=== PATIENT | female | born 1990 ===

== ENCOUNTER 2018-01-13 07:51 | Inpatient (IN) | payer MEDICAID ==
[2018-01-13] MEDS ORDERED: Sodium Citrate/Citric Acid 15 ml Sol PO ONE (14:59)
[2018-01-13] MEDS ORDERED: cefOXitin IV 2 gm in Dextrose 2 GM/50 ML BAG IVPB ONE (14:59)
[2018-01-13] MEDS ORDERED: Lactated Ringer's 1,000 ML IV ONE (14:59)
--- NOTE | 2018-01-13 14:59 | OBADHP ---
Datetime: 01/13/2018 14:54 Admit Comment, IP Provider: at 41week herec/o vaginal bleeding started 1 hr and irrg ctxs. ,no lof+fm obhx primi pmh de med pnv al nkda psh de soch d ve /-2 a/p at 41wek with r/o placenta abruption admit to l_d for stat primary c/s npo/ivf labs anthesia aware skin abxs informed consent Pelvic Type - PN: Adequate Extremities - PN: Normal Abdomen - PN: Normal Back - PN: Normal Breast - PN: Normal Lungs - PN: Normal Heart - PN: Normal Thyroid - PN: Normal Neurologic - PN: Normal HEENT - PN: Normal General - PN: Normal FHR - Baseline A Provider: 130 Contraction Comments Provider: q1-2 IP Hx Assessment: The History has been Reviewed and is Current Vital Signs Provider: Reviewed; Within Normal Limits IP Chief Complaint: Uterine contractions; Vaginal bleeding NICHD Variability Prov Fetus A: Minimal - Undetectable to <5bpm Dilatation, Provider: 4 Effacement, Provider: 80 Station, Provider: -2 Genitourinary Exam: Normal DTRs - PN: Normal IP Adm Impression: Term, intrauterine IP Admit Plan: Admit to unit; Initiate Section protocol
[2018-01-13] MEDS ORDERED: Morphine 1 mg/ml preservative-free Inj(Duramorph) ONE (15:06)
[2018-01-13 15:14] LABS: BASO % 0.3 % (0.0-2.0); EOS % 0.4 % (0.0-4.0); HEMOGLOBIN 10.5 g/dL (11.0-16.0); LYMPH # 3.4 K/uL (1.0-4.3); LYMPH % 24.4 % (20.0-40.0); MEAN CELL VOLUME 78.3 fL (81.0-99.0); MEAN CORPUSCULAR HEMOGLOBIN 26.1 pg (27.0-31.0); MEAN CORPUSCULAR HGB CONC 33.3 g/dL (33.0-37.0); MEAN PLATELET VOLUME 8.8 fL (7.2-11.7); MONO # 0.9 K/uL (0.0-0.8); MONO % 6.6 % (0.0-10.0); NEUT # 9.5 K/uL (1.8-7.0); NEUT % 68.3 % (50.0-75.0); NRBC % 0.1 % (0.0-2.0); RBC 4.03 Mil/uL (3.80-5.20); RED CELL DISTRIBUTION WIDTH 16.5 % (11.5-14.5)
[2018-01-13] MEDS ORDERED: Oxytocin 10 Units/ml Inj ONE (15:14)
[2018-01-13] MEDS ORDERED: cefOXitin IV 2 gm in Saline 2 GM/50 ML BAG IVPB ONE (15:14)
[2018-01-13] MEDS ORDERED: Phenylephrine 10 mg/ml Inj ONE (15:48)
--- NOTE | 2018-01-13 16:58 | OBDS ---
DELIVERY PERSONNEL Delivery Doctor: Jp Coleman MD Scrub Nurse: Trinidad Lima OBT Hem Inspector: Dirk Sequeira RN Anesthesiologist: gigi MATERNAL INFORMATION Delivery Anesthesia: Spinal Medications in Delivery: see anesthesia notes Estimated Blood Loss (ml): 1000 Placenta Cultured: No Maternal Complications: Abruptio Placenta; Hemorrhage Provider Comments: pt started vaginal bleeding 1 hr nicole. primary c/s for placental abruption .1000 l t blood. polacente to pathology cord gas send 9/9 no com LABOR SUMMARY EDC: 01/06/2018 00:00 No. Babies in Womb: 1 Attempted: No Labor Anesthesia: None LABOR INFORMATION Reason for Induction: Not Applicable Onset of Labor: 01/13/2018 15:00 Oxytocin: N/A Group B Beta Strep: Negative Antibiotics # of Doses: 0 Steroids Given: None Reason Steroids Not Administered: Not Applicable MEMBRANES Membranes Rupture Method: Artificial Rupture of Membranes: 01/13/2018 15:19 Length of Rupture (hrs): 0.02 Amniotic Fluid Color: Bloody Amniotic Fluid Amount: Small Amniotic Fluid Odor: Normal STAGES OF LABOR Stage 3 hrs: 0 Stage 3 min: 2 Total Time in Labor hrs: 0 Total Time in Labor min: 22 CSECTION DELIVERY Primary Indication: Abruptio Placenta Other Primary Indication: hemorrhage CSection Urgency: Emergency CSection Incidence: Primary Labor: No Labor Elective: Nonelective CSection Incision: Lower Uterine Transverse BABY A INFORMATION Infant Delivery Date/Time: 01/13/2018 15:20 Method of Delivery: Born in Route : No : N/A Forceps: N/A Vacuum Extraction: N/A Shoulder Dystocia : No SHOULDER DYSTOCIA BABY A Delivery Date/Time: 01/13/2018 15:20 PRESENTATION/POSITION BABY A Presentation: Cephalic Cephalic Presentation: Vertex Vertex Position: Left Occipital Anterior Breech Presentation: N/A PLACENTA INFORMATION BABY A Placenta Delivery Time : 01/13/2018 15:22 Placenta Method of Delivery: Manual Removal Placenta Status: Delivered SCORES BABY A Heart Rate 1 min: >100 bpm Resp Effort 1 min: Good Cry Reflex Irritability 1 min: Cough or Sneeze or Pulls Away Muscle Tone 1 min: Active Motion Color 1 min: Body [place], Extremities Blue Resuscitation Effort 1 min: Tactile Stimulation SCORE 1 MIN: 9 Heart Rate 5 min: >100 bpm Resp Effort 5 min: Good Cry Reflex Irritability 5 min: Cough or Sneeze or Pulls Away Muscle Tone 5 min: Active Motion Color 5 min: Body [place], Extremities Blue Resuscitation Effort 5 min: N/A SCORE 5 MIN: 9 INFANT INFORMATION BABY A Gestational Age at Delivery: 41.0 Gestational Status: Term Infant Outcome : Liveborn Infant Condition : Stable Infant Sex: Male IDENTIFICATION/MEDS BABY A ID Band Number: [id number] ID Band Location: Left Leg; Left Arm Sensor Applied: Yes Sensor Number: [id number] Sensor Location : Cord Clamp WEIGHT/LENGTH BABY A Infant Birthweight (gms): 3275 Infant Weight (lb): 7 Infant Weight (oz): 3 Length Inches: 20.00 Length cms: 50.8 CORD INFORMATION BABY A No. Cord Vessels: 3 Nuchal Cord : N/A Cord pH Baby Venous: 7.37 Infant Suction: Mouth; Nose
[2018-01-13] MEDS: Simethicone 80 mg Chewtab PO SCH ×2 (18:45→22:00)
--- NOTE | 2018-01-13 20:27 | PCM.SURG1 ---
Surgeon's Initial Post Op Note - Surgeon's Notes Surgeon: DR MORALEZ Mouse Breeder: DR MONDRAGON Type of Anesthesia: Spinal Anesthesia Administered By: DR COLES Pre-Operative Diagnosis: R/O PLACENTAL ABRUPTION Operative Findings: SEE THE OP REORT Post-Operative Diagnosis: SAME Operation Performed: PRIMARY SECTION Specimen/Specimens Removed: CORD GAS. BLOOD. PLACENTA Estimated Blood Loss: EBL {In ML}: 1,000 Blood Products Given: N/A Drains Used: No Drains Post-Op Condition: Good Date of Surgery/Procedure: 01/13/18 Time of Surgery/Procedure: 20:50
[2018-01-14 07:09] LABS: HEMOGLOBIN 9.1 g/dL (11.0-16.0); MEAN CELL VOLUME 78.1 fL (81.0-99.0); MEAN CORPUSCULAR HEMOGLOBIN 25.8 pg (27.0-31.0); MEAN CORPUSCULAR HGB CONC 33.1 g/dL (33.0-37.0); MEAN PLATELET VOLUME 8.6 fL (7.2-11.7); RBC 3.54 Mil/uL (3.80-5.20); RED CELL DISTRIBUTION WIDTH 16.5 % (11.5-14.5); WHITE BLOOD COUNT 13.7 K/uL (4.8-10.8)
[2018-01-14] MEDS: Oxycodone/Acetaminophen 5/325 mg Tab PO PRN ×3 (09:02→22:13)
[2018-01-14] MEDS: Simethicone 80 mg Chewtab PO SCH ×4 (09:02→22:13)
[2018-01-14] MEDS: Prenatal Multivit/Folic Acid/Iron Tab PO SCH (09:05)
--- NOTE | 2018-01-14 23:13 | OBPPN ---
Datetime: 01/14/2018 22:57 PP Pain Prov: Within normal limits PP Nausea Prov: Denies PP Flatus Prov: No PP BM Prov: No PP Breasts Prov: Normal PP Heart Prov: Normal PP Lungs Prov: Normal PP Abdomen/Uterus Prov: Normal PP Lochia Prov: Normal PP Vulva/Perineum Prov: Not Done PP CVA Tenderness Prov: Normal PP Extremities Prov: Normal PP C/S Incision Prov: Normal PP Progress Prov: Normal PP Comments Phys Exam Prov: Abdomen: Softly distended. (+) BS. Dressing over incision - clean and dr montaño Fundus firm. Moderate lochia All other systems reviewed and are negative PP Impression Prov: Normal progression PP Plan Prov: Continue present management PP Progress Note Prov: Patient seen and evaluated at approximately 0830 hours: received in chair in room 452; . Patient in good spirits. Not yet voided. Moved to chair. Denies nausea or v omiting after clears. Denies headaches, dizziness, palpitations, lightheadedness. Dale flatus or BM P.E.: as above. WD in NAD. Awake, alert, oriented to time, person and place. Pleasant and cooerati ve - POD#1 H/H 9.1/27.6. Rh(+) Assessment: POD#1, 27 y.o. P1, S/P primary LTCS for abruptio placentae. Afebrile, vital signs sta ble. Slowly returning GI function. Will monitor for spontaneous micturition. Encouraged to ambulate. Chronic anemia - asymptomatic and hemodynamically stable. Clinically stable. Plan: 1) Start iron suplementaiton, QD 2) Advance to regualr diet 3) Encourage ambulation. Vital Signs Provider PP: Reviewed
[2018-01-15] MEDS: Simethicone 80 mg Chewtab PO SCH ×3 (09:48→22:15)
[2018-01-15] MEDS: Prenatal Multivit/Folic Acid/Iron Tab PO SCH (09:48)
[2018-01-15] MEDS: Oxycodone/Acetaminophen 5/325 mg Tab PO PRN ×2 (11:13→18:38)
[2018-01-15 17:12] VITALS: O2SAT 99
--- NOTE | 2018-01-16 00:59 | OBPPN ---
Datetime: 01/15/2018 10:49 PP Pain Prov: Within normal limits PP Nausea Prov: Denies PP Flatus Prov: No PP BM Prov: No PP Breasts Prov: Not Done PP Heart Prov: Normal PP Lungs Prov: Normal PP Abdomen/Uterus Prov: Normal PP Lochia Prov: Normal PP Vulva/Perineum Prov: Not Done PP CVA Tenderness Prov: Normal PP Extremities Prov: Normal PP C/S Incision Prov: Normal PP Progress Prov: Abnormal PP Comments Phys Exam Prov: Fundus firm and normal lochia PP Impression Prov: Normal progression; difficulties PP Plan Prov: Continue present management; consult PP Progress Note Prov: POD # 2 Minimal flatus, No BM Drinking very little water Difficulty with Brestfeeding and consultation requested Will adjust pain medication Requesting circumcision to be done and consent signed after procedure, risks and possible complica tions fully reviewed and both mother and father verbalized understanding. Will advance care Hope to discharge home in AM Vital Signs Provider PP: Reviewed
[2018-01-16 08:27] VITALS: BP 112/55; PULSE 83; RESP 18
[2018-01-16] MEDS ORDERED: Lidocaine 1% Inj (20ml) INFIL ONE (08:41)
[2018-01-16] MEDS: Simethicone 80 mg Chewtab PO SCH (09:49)
[2018-01-16] MEDS: Oxycodone/Acetaminophen 5/325 mg Tab PO PRN (09:49)
[2018-01-16] MEDS: Prenatal Multivit/Folic Acid/Iron Tab PO SCH (09:49)
--- NOTE | 2018-01-16 12:05 | OBDCSUM ---
Datetime: 01/16/2018 11:00 Discharged to, Provider: Home Follow up at, Provider: [facility] Disch Instr Activity: Normal activity; May Shower Disch Instr Diet: Regular Discharge Diet restrict Prov: none Discharge Instructions, Provider: Routine instructions given Discharge Diagnosis, Provider: Term Delivered; Antepartum Bleeding Discharge Time: 01/16/2018 11:00 Follow up in weeks, Provider: Tues/ staple removal Disch Referrals: None Disch Activity Restrictions: No exercising; No lifting; No driving; No sexual activity; Nothing in v agina - [place], tampons, douche Discharge Comment, Provider: POD # 3 Incision clean, dried and intact. Meldrim in place Stable and Satisfactory condition and recovery Eating, voiding, ambulating, and fine Circumcision was performed per her request Discharge home with instructions and Rx. Request Rx for PNV, Fe and for pain medications and given Will follow up with the clinic in 1 week to have ayla removed Continue pelvic rest x 6-8 weeks Contraception after Delivery: Not Planning to Use
[2018-01-16] MEDS ORDERED: PYRIDOXINE HCL PO PRN (12:17)
[2018-01-16] MEDS ORDERED: DOXYLAMINE PO PRN (12:17)
[2018-01-16 18:27] VITALS: TEMP 97.1
== END 2018-01-16 14:22 | disposition home or self-care (01) | DRG 650 ==
LOC: C.4D 14:55 → C.4M 19:30
PROVIDERS: ADMIT Obstetrics & Gynecology; ATTEND Obstetrics & Gynecology
PROC: 10D00Z1 Extraction of Products of Conception, Low, Open Approach (ICD-10-PCS; principal; 2018-01-13)
DX: O45.93 Premature separation of placenta, unspecified, third trimester (principal); O99.02 Anemia complicating childbirth; D64.9 Anemia, unspecified; Z3A.41 41 weeks gestation of pregnancy; Z37.0 Single live birth